=== PATIENT | male | born 1990 | race African-American/Black ===

== ENCOUNTER 2018-02-10 11:51 | Emergency (ER) | payer SELFPAY ==
[2018-02-10 11:59] VITALS: BP 153/84; PULSE 69; TEMP 98.8; BMI 32.5
--- NOTE | 2018-02-10 12:33 | PDOC ---
History of Present Illness - General Chief Complaint: Injury Stated Complaint: INJURY Time Seen by Provider: 02/10/18 12:26 History Source: Patient Exam Limitations: No Limitations - History of Present Illness Initial Comments: CHIEF COMPLAINT: 27 y/o male with right ankle and foot pain s/p basketball injury yesterday. HISTORY OF PRESENT ILLNESS: The patient admits to rolling his right ankle in an inversion fashion yesterday while playing basketball. He states he couldn't put pressure on it after the injury and his dad gave him an old pair of crutches to use. He has been icing it but hasn't taken anything for pain. He denies numbness/tingling. Vital signs on arrival are within normal limits. REVIEW OF SYSTEMS: GENERAL/CONSTITUTIONAL:No fever/chills. No weakness. No weight change. MUSCULOSKELETAL: +right foot and ankle pain and swelling. No neck or back pain. SKIN: No rash or easy bruising. NEUROLOGIC: No headache, vertigo, loss of consciousness, or loss of sensation. PHYSICAL EXAM: VITAL_SIGNS: within normal limits GENERAL_APPEARANCE: alert, cooperative, no obvious discomfort. MENTAL_STATUS: speech clear, oriented X 3, responds appropriately to questions. NEURO: motor intact and sensory intact in injured extremity. EXTREMITIES: good pulse in injured extremity. Swelling to lateral dorsal right foot with TTP over the 4th and 5th metatarsals. No TTP of medial or lateral malleolus. No erythema or warmth. SKIN: warm, dry, good color. Past History - Past Medical History Allergies/Adverse Reactions: Allergies Allergy/AdvReac Type Severity Reaction Status Date / Time No Known Allergies Allergy Verified 02/10/18 11:56 Home Medications: Ambulatory Orders NK [No Known Home Medication] 02/10/18 CVA: No COPD: No DVT: No Dementia: No - Immunization History Immunization Up to Date: Yes - Suicide/Smoking/Psychosocial Hx Smoking History: Never smoked Information on smoking cessation initiated: No Hx Alcohol Use: No Drug/Substance Use Hx: No Substance Use Type: Alcohol *Physical Exam - Vital Signs Last Vital Signs Temp Pulse Resp BP Pulse Ox 98.8 F 69 16 153/84 98 02/10/18 11:57 02/10/18 11:57 02/10/18 11:57 02/10/18 11:57 02/10/18 11:57 Medical Decision Making - Medical Decision Making A/P: 27 y/o male with right ankle injury while playing basketball yesterday. Plan is as follows: 1. xray right ankle/foot Xray right ankle/foot IMPRESSION: Avulsion fracture of the base of the 5th metatarsal. No Lisfranc deformity seen. Put patient's foot in a hard shoe. Instructed him to continue to use the crutches and to avoid putting pressure on the foot until he f/u with Dr. Saldivar. Suggested RICE instructions and motrin for pain. The patient verbalizes understanding of all instructions, has no further questions and is awaiting discharge. *DC/Admit/Observation/Transfer Diagnosis at time of Disposition: Metatarsal fracture Qualifiers: Encounter type: initial encounter Metatarsal bone: fifth Fracture type: closed Fracture alignment: nondisplaced Laterality: right Qualified Code(s): S92.354A - Nondisplaced fracture of fifth metatarsal bone, right foot, initial encounter for closed fracture - Discharge Dispostion Disposition: HOME Condition at time of disposition: Good - Referrals Referrals: Brayan Saldivar MD [Staff Physician] - (Call Today) - Patient Instructions Printed Discharge Instructions: How to Use Crutches, DI for Foot Fracture, How To Perform RICE (Rest, Ice, Compress, Elevate) Additional Instructions: Discharge Instructions: -You broke a bone in your foot (base of 5th metatarsal) -Please use the shoe provided in the ER with crutches -Do not put pressure on your foot until you are seen by an Orthopedic doctor -Follow RICE instructions provided in discharge paperwork -Take Motrin for pain every 6 hours if needed -Call Dr. Saldivar today and schedule follow up appointment for as soon as possible - Post Discharge Activity Forms/Work/School Notes: Back to Work
== END 2018-02-10 13:16 | disposition home or self-care (01) ==
LOC: JERFT 11:51
DX: S92.354A Nondisplaced fracture of fifth metatarsal bone, right foot, initial encounter for closed fracture (principal); X50.1XXA Overexertion from prolonged static or awkward postures, initial encounter; Y93.67 Activity, basketball; Y92.310 Basketball court as the place of occurrence of the external cause; Y99.8 Other external cause status
CPT/HCPCS: 73610-TC-RT-FY; 73630-TC-RT-FY; 99281-25